=== PATIENT | female | born 1975 | race Two or more races ===

== ENCOUNTER 2021-09-15 14:38 | Emergency (ER) | payer MEDICAID ==
[2021-09-15 15:43] LABS: HEMOGLOBIN 13.3 gm/dl (12.3-15.3); RED BLOOD COUNT 4.64 M/UL (4.00-5.10); WHITE BLOOD COUNT 5.5 K/UL (4.5-11.0)
[2021-09-15 16:18] LABS: BUN/CREATININE RATIO 22 (0-10)
[2021-09-15] MEDS ORDERED: PROTONIX40 MG PO (20:21)
[2021-09-15] MEDS ORDERED: ZOFRAN 4 MG TAB4 MG PO (20:21)
== END 2021-09-15 20:40 | disposition home or self-care (01) ==
LOC: ER1 14:38
PROVIDERS: Preventive Medicine Occupational Medicine
DX: K29.00 Acute gastritis without bleeding (principal); K80.50 Calculus of bile duct without cholangitis or cholecystitis without obstruction
CPT/HCPCS: 76705; 80053; 81001; 83690; 85025; 85652; 86140; 87086; 96374; 96375; 99284; J1170; J2405; Q9967

== ENCOUNTER → 2021-10-27 | Outpatient (CLI) | payer OTHER ==
[~2021-10-27] MED LIST: PROTONIX40 MG PO; ZOFRAN 4 MG TAB4 MG PO
== END ==
LOC: NM 09:00
DX: R10.811 Right upper quadrant abdominal tenderness (principal)
CPT/HCPCS: 78227; A9537

== ENCOUNTER → 2021-11-08 | Day surgery (SDC) | payer OTHER ==
[~2021-11-08] MED LIST changes: +COLACE100 MG PO; +HYDROCODON-ACE1 EAC2 PO
== END | disposition home or self-care (01) ==
LOC: OR 06:25
DX: K81.1 Chronic cholecystitis (principal)
CPT/HCPCS: 84703; J0690; J1100; J1885; J2001; J2250; J2405; J2704; J3010; J7030; J7120